=== PATIENT | female | born 1975 | race Caucasian/White ===

== ENCOUNTER 2017-10-30 14:27 | Emergency (ER) | payer MEDICAID, OTHER ==
[2017-10-30 16:45] LABS: ADD MAN DIFF? NO
[2017-10-30 16:47] LABS: BASOPHILS % 0.2 % (0.0-2.0); EOSINOPHILS % 0.3 % (0.0-7.0); HEMATOCRIT 41.7 % (37.0-47.0); LYMPHOCYTES # 1.8 10^3/ul (0.8-2.9); LYMPHOCYTES % 18.7 % (15.0-51.0); MEAN CORPUSCULAR HGB CONC 33.6 g/dl (32.0-37.0); MEAN CORPUSCULAR VOLUME 83.4 fl (82.0-101.0); MEAN PLATELET VOLUME 10.4 fl (7.4-10.4); MONOCYTE # 0.5 10^3/ul (0.3-0.9); MONOCYTES % 4.8 % (0.0-11.0); NEUTROPHIL # 7.4 10^3/ul (1.6-7.5); NEUTROPHILS % 75.6 % (39.0-77.0); PLATELET COUNT 279 10^3/UL (140-415)
[2017-10-30 16:47] LABS: WHITE BLOOD COUNT 9.8 10^3/ul (4.8-10.8)
[2017-10-30] MEDS: LIDOCAINE/MYLANTA 40 ML BTL PO (16:49)
[2017-10-30] MEDS: ASPIRIN 325 MG TAB PO (16:49)
[2017-10-30 17:11] LABS: ANION GAP 18 (8-16); BLOOD UREA NITROGEN 11 mg/dl (7-20); CALCIUM 9.4 mg/dl (8.4-10.2); CARBON DIOXIDE 23 mmol/L (21-31); CHLORIDE 106 mmol/L (97-110); CREATININE 0.71 mg/dl (0.44-1.00); GLUCOSE 102 mg/dl (70-220); POTASSIUM 3.5 mmol/L (3.5-5.1); SODIUM 143 mmol/L (135-144)
[2017-10-30 17:22] LABS: B-TYPE NATRIURETIC PEPTIDE 38 PG/ML (0-125)
[2017-10-30 17:29] LABS: TROPONIN-I < 0.012 ng/ml (0.00-0.12)
[2017-10-30] MEDS: FAMOTIDINE 20 MG TAB PO (20:14)
== END 2017-10-30 20:15 | disposition home or self-care (01) ==
LOC: E/R 14:27
DX: K21.9 Gastro-esophageal reflux disease without esophagitis (principal); R40.2252 Coma scale, best verbal response, oriented, at arrival to emergency department; R07.9 Chest pain, unspecified; R40.2362 Coma scale, best motor response, obeys commands, at arrival to emergency department; R40.2142 Coma scale, eyes open, spontaneous, at arrival to emergency department
CPT/HCPCS: 36415; 71045; 80048; 81025; 83880; 84484; 85025; 93005; 99285-25